=== PATIENT | male | born 1970 | race African-American/Black ===

== ENCOUNTER 2017-02-13 09:26 | Emergency (ER) | payer OTHER, SELFPAY ==
[~2017-02-13] VITALS: Ht 175.3 cm; Wt 90.7 kg
[~2017-02-13 09:26] MED LIST: ASPIRIN81 MG ORAL; HYDROCHLOROTHIA25 MG ORAL; IBUPROFEN600 MG ORAL; IBUPROFEN800 M1 PO; NORVASC5 MG ORAL; VALIUM10 MG ORAL; ZESTORETIC 20/251 EA ORAL
[2017-02-13 09:35] VITALS: BP 147/95
[2017-02-13 11:08] LABS: BASOPHILS % (AUTO) 1.3 % (0.0-2.0); EOSINOPHILS % (AUTO) 3.2 % (0.0-3.0); LYMPHOCYTES % (AUTO) 30.1 % (20.0-45.0); MEAN CORPUSCULAR HEMOGLOBIN 30.1 PG (27.0-31.0); MEAN CORPUSCULAR HGB CONC 33.2 G/DL (32.0-36.0); MEAN CORPUSCULAR VOLUME 91 FL (80-99); MEAN PLATELET VOLUME 9.4 FL (6.5-10.1); MONOCYTES % (AUTO) 8.4 % (1.0-10.0); PLATELET COUNT 277 K/UL (150-450); RED BLOOD COUNT 5.54 M/UL (4.70-6.10); RED CELL DISTRIBUTION WIDTH 10.5 % (11.6-14.8); WHITE BLOOD COUNT 7.7 K/UL (4.8-10.8)
[2017-02-13 11:20] LABS: TROPONIN I < 0.30 ng/mL (<=0.30)
[2017-02-13 11:23] LABS: ALANINE AMINOTRANSFERASE 27 U/L (3-41); ALBUMIN/GLOBULIN RATIO 1.4 (1.0-2.7); ANION GAP 8 (5-15); ASPARTATE AMINO TRANSFERASE 21 U/L (5-40); CALCIUM 9.3 mg/dL (8.6-10.2); CARBON DIOXIDE 32 mEQ/L (20-30); CHLORIDE 99 mEQ/L (98-107); CREATININE 1.4 mg/dL (0.7-1.2); GLOMERULAR FILTRATION RATE > 60 mL/min (>60); HEMOLYSIS 5; SODIUM 139 mEQ/L (135-145); TOTAL PROTEIN 7.9 g/dL (6.6-8.7)
[2017-02-13 11:40] VITALS: BP 130/100
--- NOTE | 2017-02-13 12:03 | Diagnostic Imaging Report ---
Indication: Bilateral ear pain Technique: Continuous helical CT scanning of the head was performed without intravenous contrast material. Axial and coronal 5 mm sections were generated. Radiation dose was minimized using automated exposure control Dose: Total Dose Length Product - DLP [address] Dose Index - CTDIvol(s) 70.38 mGy. Comparison: None Findings: The ventricular system is normal in size and configuration. There is no shift of midline structures. No abnormal extra-axial fluid collections are noted. There is no evidence of intracerebral bleeding. No other abnormal high or low density areas are noted within the brain. There is minimal ethmoid sinus disease bilaterally. Intact calvarium. Mastoids are clear. The orbits are unremarkable Impression: Normal CT scan of the head without contrast material. Incidental finding of ethmoid sinus disease The CT scanner at [facility] is accredited by the [employer] and the scans are performed using protocols designed to limit radiation exposure to as low as reasonably achievable to attain images of sufficient resolution adequate for diagnostic evaluation.
[2017-02-13 12:29] VITALS: BP 132/96
--- NOTE | 2017-02-13 17:44 | Emergency Room Report ---
History of Present Illness General Chief Complaint: Pain Source: Patient Present Illness HPI This is a 46-year-old male who presented after increased The paresthesias to his upper extremities as well as increased bilateral ear pain and swelling. Patient reported having recent increase in flatulence. Patient stated that he had been having the gradual onset of worsening a tingling in his extremities in his upper and lower extremities bilaterally. He reported having associated generalized weakness. The patient states he was taking hydrochlorothiazide for his blood pressure as well as lisinopril. Patient states is normally followed at [place]. Allergies: Coded Allergies: No Known Allergies (Verified Allergy, Unknown, 05/29/09) Patient History Past Medical History: see triage record Reviewed Nursing Documentation: PMH: Agreed, PSxH: Agreed Nursing Documentation-PMH Past Medical History: No History, Except For Hx Hypertension: Yes Review of Systems All Other Systems: negative except mentioned in HPI Physical Exam Vital Signs Date Time Temp Pulse Resp B/P (MAP) Pulse Ox O2 Delivery O2 Flow Rate FiO2 02/13/17 09:32 97.7 69 18 147/95 99 Room Air Sp02 EP Interpretation: reviewed, normal General Appearance: normal inspection, well appearing, no apparent distress, alert, GCS 15 Head: atraumatic ENT: normal ENT inspection, hearing grossly normal, normal voice Neck: normal inspection, full range of motion, supple, no bony tend Respiratory: normal inspection, lungs clear, normal breath sounds, no respiratory distress, no retraction, no wheezing Cardiovascular #1: regular rate, rhythm, no edema Gastrointestinal: normal inspection, normal bowel sounds, non tender, soft, no guarding, no hernia Genitourinary: no CVA tenderness Musculoskeletal: normal inspection, back normal, normal range of motion Neurologic: normal inspection, alert, responsive, speech normal Psychiatric: normal inspection, judgement/insight normal, mood/affect normal Skin: normal inspection, normal color, no rash Medical Decision Making Diagnostic Impression: Primary Impression: Muscle ache Additional Impression: Peripheral neuralgia ER Course Patient presented for headache.Differential diagnoses included but was not limited to skull fracture, subarachnoid hemorrhage, meningitis, aneurysm, mass lesion, intracranial hemorrhage.Because of complexity of patient's case laboratory testing and imaging studies were ordered. I laboratory testing showed minimal elevation of the patient's potassium. This may be due to potassium sparing diuretic. A CT of head read by radiology showed ethmoid sinus disease without acute evidence of CVA or intracranial hemorrhage. The patient was noted to have some evidence of ethmoid sinus disease however does not appear to have acute sinusitis requiring antibiotics. The patient is advised to followup with his physician for possible modification of his blood pressure medications. Labs Test 02/13/17 10:40 White Blood Count 7.7 K/UL (4.8-10.8) Red Blood Count 5.54 M/UL (4.70-6.10) Hemoglobin 16.7 G/DL (14.2-18.0) Hematocrit 50.2 % (42.0-52.0) Mean Corpuscular Volume 91 FL (80-99) Mean Corpuscular Hemoglobin 30.1 PG (27.0-31.0) Mean Corpuscular Hemoglobin Concent 33.2 G/DL (32.0-36.0) Red Cell Distribution Width 10.5 % (11.6-14.8) Platelet Count 277 K/UL (150-450) Mean Platelet Volume 9.4 FL (6.5-10.1) Neutrophils (%) (Auto) 57.0 % (45.0-75.0) Lymphocytes (%) (Auto) 30.1 % (20.0-45.0) Monocytes (%) (Auto) 8.4 % (1.0-10.0) Eosinophils (%) (Auto) 3.2 % (0.0-3.0) Basophils (%) (Auto) 1.3 % (0.0-2.0) D-Dimer 115 ng/mL (<500) Sodium Level 139 mEQ/L (135-145) Potassium Level 5.0 mEQ/L (3.4-4.9) Chloride Level 99 mEQ/L (98-107) Carbon Dioxide Level 32 mEQ/L (20-30) Anion Gap 8 (5-15) Blood Urea Nitrogen 14 mg/dL (7-23) Creatinine 1.4 mg/dL (0.7-1.2) Estimat Glomerular Filtration Rate > 60 mL/min (>60) Glucose Level 128 mg/dL (74-106) Calcium Level 9.3 mg/dL (8.6-10.2) Total Bilirubin 0.8 mg/dL (0.0-1.2) Aspartate Amino Transf (AST/SGOT) 21 U/L (5-40) Alanine Aminotransferase (ALT/SGPT) 27 U/L (3-41) Alkaline Phosphatase 65 U/L (40-129) Troponin I < 0.30 ng/mL (<=0.30) Total Protein 7.9 g/dL (6.6-8.7) Albumin 4.7 g/dL (3.5-5.2) Globulin 3.2 g/dL Albumin/Globulin Ratio 1.4 (1.0-2.7) EKG Diagnostic Results Rate: normal Rhythm: NSR ST Segments: no acute changes Rhythm Strip Diag. Results EP Interpretation: yes Rhythm: NSR, no PVC's, no ectopy Last Vital Signs Date Time Temp Pulse Resp B/P (MAP) Pulse Ox O2 Delivery O2 Flow Rate FiO2 02/13/17 12:29 73 18 132/96 99 Room Air 02/13/17 12:19 97.7 Status: improved Disposition: HOME, SELF-CARE Condition: Improved Patient Instructions: Paresthesia, [id number] Paulino Ordonez Feb 13, 2017 17:44
== END 2017-02-13 12:36 | disposition home or self-care (01) ==
LOC: EMR 10:05
DX: M79.1 Myalgia (principal); M79.2 Neuralgia and neuritis, unspecified; R20.9 Unspecified disturbances of skin sensation; H92.03 Otalgia, bilateral; R14.3 Flatulence; R20.2 Paresthesia of skin; I10 Essential (primary) hypertension
CPT/HCPCS: 36415; 70450; 80053; 84484; 85025; 85379; 93005; 99284

== ENCOUNTER 2017-04-16 21:33 | Emergency (ER) | payer OTHER ==
[~2017-04-16] VITALS: Ht 175.3 cm; Wt 90.7 kg
[2017-04-16] MEDS ORDERED: Ketorolac 60mg Inj IM ONE (22:00)
[2017-04-16 22:30] LABS: APPEARANCE,URINE CLEAR; KETONES,URINE NEGATIVE (NEGATIVE); LEUKOCYTE ESTERASE ,URINE NEGATIVE (NEGATIVE); NITRITE,URINE NEGATIVE (NEGATIVE); PH,URINE 6 (4.5-8.0); PROTEIN,URINE NEGATIVE (NEGATIVE); UROBILINOGEN,URINE NORMAL MG/DL (0.0-1.0)
[2017-04-16] MEDS ORDERED: IBUPROFEN800 MG ORAL (22:35)
[2017-04-16 22:50] VITALS: BP 127/89
[2017-04-16 22:51] VITALS: BP 132/92
--- NOTE | 2017-04-16 22:53 | Emergency Room Report ---
History of Present Illness General Chief Complaint: Back Pain-No Injury Source: Patient Present Illness HPI 46-year-old male walks in with right lower back pain for one day. Pain is 7/10 , radiates to right side, pain is constant, no associated dysuria, polyuria or hematuria. No history of kidney stones. No recent trauma or heavy lifting at work or home. No other known medical problems. Took ibuprofen 2 times today with some improvement in pain Allergies: Coded Allergies: No Known Allergies (Verified Allergy, Unknown, 05/29/09) Patient History Past Medical History: none Past Surgical History: none Social History: Denies: smoking, alcohol use, drug use Immunizations: UTD Reviewed Nursing Documentation: PMH: Agreed, PSxH: Agreed Nursing Documentation-PMH Hx Hypertension: Yes Review of Systems All Other Systems: negative except mentioned in HPI Physical Exam Vital Signs Date Time Temp Pulse Resp B/P (MAP) Pulse Ox O2 Delivery O2 Flow Rate FiO2 04/16/17 21:46 98.1 76 18 132/92 96 Room Air Sp02 EP Interpretation: reviewed, normal General Appearance: normal inspection, well appearing, no apparent distress, alert, GCS 15, non-toxic Head: normocephalic, atraumatic ENT: normal ENT inspection, hearing grossly normal, normal voice Neck: normal inspection, full range of motion, supple, no bony tend Respiratory: normal inspection, lungs clear, normal breath sounds, no respiratory distress, no retraction, no wheezing Cardiovascular #1: regular rate, rhythm, no edema Gastrointestinal: normal inspection, normal bowel sounds, non tender, soft, no guarding, no hernia Genitourinary: no CVA tenderness Musculoskeletal: normal inspection, back normal, normal range of motion, non- tender, Megan's Sign negative Neurologic: normal inspection, alert, responsive, speech normal Psychiatric: normal inspection, judgement/insight normal, mood/affect normal Skin: normal inspection, normal color, no rash Medical Decision Making Diagnostic Impression: Primary Impression: Muscle ache Additional Impression: Back pain Qualified Codes: M54.5 - Low back pain ER Course 46-year-old male with right lower back pain VSS. Afebrile. Pain is constant, likely MSK UA negative for hematuria, infection - unlikely pyelo or renal stone Gave toradol with resolution of pain Rx Ibuprofen Close PMD followup ER course: Patient has remained stable during ED stay. Disposition: Patient is to be discharged to home. Patient is instructed to follow up with their primary care doctor within 5 days. Strict return precautions discussed with patient such as fever, chills, worsening/severe pain, nausea, vomiting, which may indicate severe illness. Patient verbalizes understanding and agrees with plan. Please note that this Emergency Department Report was dictated using [employer] technology software, occasionally this can lead to erroneous entry secondary to interpretation by the dictation equipment Last Vital Signs Date Time Temp Pulse Resp B/P (MAP) Pulse Ox O2 Delivery O2 Flow Rate FiO2 04/16/17 21:46 98.1 76 18 132/92 96 Room Air Status: improved Disposition: HOME, SELF-CARE Condition: Improved Scripts Ibuprofen* (MOTRIN*) 800 Mg Tablet 800 MG ORAL THREE TIMES A DAY for 7 Days, #30 TAB 0 Refills Prov: JIAN CHAU M.D. 04/16/17 Patient Instructions: Back Pain, Adult Additional Instructions: - Take ibuprofen 800mg every 8 hours with food for pain - Apply combination of ice or heat to area of pain as well to see what works better - Follow up with your primary doctor in 2-3 days if needed JIAN CHAU M.D. Apr 16, 2017 22:53
== END 2017-04-16 22:55 | disposition home or self-care (01) ==
LOC: EMR 22:02
DX: M54.5 Low back pain (principal); I10 Essential (primary) hypertension
CPT/HCPCS: 81003; 99283